=== PATIENT | male | born 1990 | race Caucasian/White ===

== ENCOUNTER 2017-08-03 13:13 | Emergency (ER) | payer OTHER ==
[~2017-08-03] VITALS: Ht 177.8 cm; Wt 136.1 kg
[~2017-08-03 13:13] MED LIST: IBUPROFEN600 MG PO; NORCO 5-325 TA1 EACH PO
== END 2017-08-03 13:32 | disposition home or self-care (01) ==
LOC: ED 13:13
DX: Z00.8 Encounter for other general examination (principal)